=== PATIENT | male | born 1990 | race Hispanic/Latino ===

== ENCOUNTER → 2020-08-29 | Outpatient (CLI) | payer BC ==
--- NOTE | 2020-08-29 10:35 | Diagnostic Imaging Report ---
Exam: Testicular ultrasound. Clinical History: Testicular pain Findings: Sonographic evaluation of the testicles. Both testes are normal in echogenicity and size without intratesticular mass. Normal symmetric blood flow and arterial and venous Doppler waveforms without evidence of testicular torsion. Right: The right testicle measures 4.9 x 2.4 x 3.1 cm and appears unremarkable. The right epididymis measures 1.2 x 1.2 x 1.3 cm and contains a 3 mm spermatocele. Small right hydrocele. Left varicocele. Left: The left testicle measures 5.0 x 2.1 x 2.9 cm and appears unremarkable. The left epididymis measures 1.6 x 1.1 x 0.9 cm and appears unremarkable. No left hydrocele. Left varicocele. Impression: No testicular mass or testicular torsion. Bilateral varicoceles. Small right hydrocele. 3 mm right spermatocele. Signed by: Billy Cole MD on 08/29/2020 10:32 AM
== END ==
LOC: US 08:41
PROVIDERS: ATTEND Family Medicine
DX: N50.819 Testicular pain, unspecified (principal); I86.1 Scrotal varices; N43.3 Hydrocele, unspecified
CPT/HCPCS: 76870; 93976